=== PATIENT | male | born 1960 | race Caucasian/White ===

== ENCOUNTER 2023-12-27 14:33 | Outpatient (OUT) | payer BC, SELFPAY | END 2023-12-27 14:34 | disposition home or self-care (01) | LOC: PST 14:34 | PROVIDERS: Visit Provider Surgery | DX: Z01.818 Encounter for other preprocedural examination (principal); Z12.11 Encounter for screening for malignant neoplasm of colon ==

== ENCOUNTER 2024-01-03 06:43 | Day surgery (SDC) | payer BC, SELFPAY ==
--- OUTSIDE RECORDS SUMMARY | 2024-01-03 06:49 | XMS_ITS | CCD ---
Author Organization [facility] Care Team Providers Care Weatherization Specialist Name Role Phone Rine, Tressa L Primary Care Provider Rigoberto Patel MD Attending Unavailable Rine MISSION SUPPORT SPECIALIST, Tressa Hemalatha Primary Care Unavailable Rigoberto Patel MD Attending Unavailable Rine MISSION SUPPORT SPECIALIST, Tressa Hemalatha Primary Care Unavailable Rigoberto Patel MD Attending Unavailable Rine MISSION SUPPORT SPECIALIST, Tressa Hemalatha Consulting Unavailable Rine MISSION SUPPORT SPECIALIST, Tressa Hemalatha Primary Care Unavailable Rigoberto Patel MD Attending Unavailable Rine MISSION SUPPORT SPECIALIST, Tressa Hemalatha Primary Care Unavailable Rigoberto Patel MD Attending Unavailable Rine MISSION SUPPORT SPECIALIST, Tressa Hemalatha Primary Care Unavailable Rigoberto Patel MD Attending Unavailable Rine MISSION SUPPORT SPECIALIST, Tressa Hemalatha Primary Care Unavailable Evelio Monsivais DO Primary Care Provider [phone] [place] MARRIAGE AND FAMILY COUNSELOR, Tressa L Unavailable Evelio Monsivais DO Unavailable Rine EXPLOSION WELDER - MARRIAGE AND FAMILY COUNSELOR, Tressa L Primary Care Provider RINE, TRESSA L Referring Unavailable RINE, TRESSA L Primary Care Unavailable RINE, TRESSA L Primary Care Unavailable KEATON KRISHNAMURTHY Attending Unavailable RINE, TRESSA L Referring Unavailable RINE, TRESSA L Primary Care Unavailable RINE, TRESSA L Referring Unavailable RINE, TRESSA L Primary Care Unavailable RINE, TRESSA L Referring Unavailable RINE, TRESSA L Primary Care Unavailable RINE, TRESSA L Referring Unavailable RINE, TRESSA L Primary Care Unavailable RINE, TRESSA L Referring Unavailable RINE, TRESSA L Primary Care Unavailable RINE, TRESSA L Attending Unavailable RINE, TRESSA L Attending Unavailable ELI PERRIN Attending Unavailable Allergies Allergy Classification Reported Allergen(s) Allergy Type Date of Onset Reaction(s) Facility (1 source) No Known Medication Allergies; Translations: [No Known Medication Allergies] Propensity to adverse reactions to drug (disorder) [facility] Repository Medications Current Medications Medication Drug Class(es) Dates Sig (Normalized) Sig (Original) azithromycin 250 mg oral tablet (1 source) Macrolide Antimicrobial Start: 3 azithromycin (Zithromax) 250 MG tablet Indications: Bronchitis Take 2 tablets day one then 1 tablet daily 6 tablet 0 01/20/2023 Active cholecalciferol 0.025 mg oral tablet (1 source) Vitamin D Start: 3 take 1 tablet by mouth once daily cholecalciferol (Vitamin D3) 25 MCG (1000 UT) tablet Indications: Vitamin D deficiency Take 1 tablet (1,000 Units) by mouth 1 (one) time each day at the same time. 90 tablet 3 12/23/2022 Active chondroitin sulfates 1200 mg / glucosamine sulfate 1500 mg oral capsule (1 source) take 1 tablet by mouth in the morning Glucosamine-Chondr oitin 500-400 MG capsule Take 1 tablet by mouth in the morning. 0 Active chondroitin sulfates 200 mg / glucosamine sulfate 500 mg / methylsulfonylmethane 150 mg oral tablet (6 sources) take 1 tablet by mouth once daily Glucosamine-Chondr oitin-MSM 500-200-150 MG TABS Take 1 tablet by mouth daily. 0 Active Elastic Bandages & Supports (Abdominal Binder/Elastic Large) misc (1 source) Start: 3 Elastic Bandages & Supports (Abdominal Binder/Elastic Large) misc Indications: Diastasis recti 1 Units in the morning. Patient to be measured for sizing. 1 each 0 01/20/2023 Active levothyroxine sodium 0.088 mg oral tablet (8 sources) l-Thyroxine Start: 4 End: 4 take 1 tablet by mouth before mealtime levothyroxine (Synthroid) 88 MCG tablet Indications: Acquired hypothyroidism (CMS/HCC) Take 1 tablet (88 mcg) by mouth in the morning. Take before meals. 90 tablet 1 05/11/2023 11/07/2023 Active take 1 tablet by mouth once reyes y levothyroxine (SYNTHROID) 100 MCG tablet Take 100 mcg by mouth Daily. 0 Active methylPREDNISolone 4 mg oral tablet (1 source) Corticosteroid Start: 01-20-2023 methylPREDNISolone (Medrol) 4 MG tablet Indications: Bronchitis 1 MEDROL DOSE LANCE 1 tablet 0 01/20/2023 Active Multiple Vitamins-Minerals (MULTIVITAMIN ADULTS 50+ PO) (1 source) take 1 tablet by mouth in the morning Multiple Vitamins-Minerals (MULTIVITAMIN ADULTS 50+ PO) Take 1 tablet by mouth in the morning. 0 Active Multiple Vitamins-Minerals (THERAPEUTIC MULTIVITAMIN-MINERALS) tablet (6 sources) take 1 tablet by mouth once daily Multiple Vitamins-Minerals (THERAPEUTIC MULTIVITAMIN-MINERALS) tablet Take 1 tablet by mouth daily 0 Active take 1 tablet by mouth once reyes y Multiple Vitamins-Minerals (THERAPEUTIC MULTIVITAMIN-MINERALS) tablet Take 1 tablet by mouth daily. 0 Active Completed/Discontinued Medications Medication Drug Class(es) Dates Sig (Normalized) Sig (Original) 50 ml sodium chloride 9 mg/ml injection (1 source) Start: 08-29-2023 End: 08-29-2023 sodium chloride 0.9 % bolus 1,000 mL Problems Active Problems Problem Classification Problem Date Documented Da te Episodic/Chronic Disorders of lipid metabolism (1 source) Hypercholesterolemi a; Translations: [Pure hypercholesterolemi a, unspecified] Onset: 10-26-2022 10-26-2022 Chronic Fracture of lower limb (1 source) Closed fracture of calcaneus; Translations: [Unspecified fracture of left calcaneus, initial encounter for closed fracture] Episodic Nutritional deficiencies (1 source) Vitamin D deficiency; Translations: [Vitamin D deficiency, unspecified] Onset: 10-26-2022 10-26-2022 Chronic Other injuries and conditions due to external causes (1 source) Dislocation of joint; Translations: [Unspecified multiple injuries, initial encounter] Episodic Other lower respiratory disease (1 source) Other forms of dyspnea; Translations: [Other forms of dyspnea] Onset: 10-17-2023 Episodic Rheumatoid arthritis and related disease (1 source) Seronegative rheumatoid arthritis; Translations: [Rheumatoid arthritis without rheumatoid factor, unspecified site] Onset: 10-26-2022 10-26-2022 Chronic Syncope (3 sources) Syncope and collapse; Translations: [Syncope and collapse] Onset: 08-29-2023 08-29-2023 Episodic Thyroid disorders (2 sources) Acquired hypothyroidism; Translations: [Hypothyroidism, unspecified] Onset: 10-26-2022 05-11-2023 Chronic Past or Other Problems Problem Classification Problem Date Documented Da te Episodic/Chronic Immunizations and screening for infectious disease (1 source) Anti-nuclear factor positive; Translations: [Other specified abnormal immunological findings in serum] Onset: 10-26-2022 Resolved: 01-20-2023 01-20-2023 Episodic Other bone disease and musculoskeletal deformities (1 source) Osteopenia; Translations: [Other specified disorders of bone density and structure, unspecified site] Onset: 10-26-2022 10-26-2022 Episodic Other connective tissue disease (2 sources) Diastasis recti; Translations: [Separation of muscle (nontraumatic), other site] Onset: 05-25-2023 05-25-2023 Episodic Other screening for suspected conditions (not mental disorders or infectious disease) (6 sources) Patient encounter status; Translations: [Encounter for screening for malignant neoplasm of colon] Onset: 12-03-2013 Resolved: 01-23-2018 01-23-2018 Episodic Other upper respiratory disease (1 source) Allergic rhinitis due to pollen; Translations: [Allergic rhinitis due to pollen] Onset: 10-26-2022 Resolved: 01-20-2023 01-20-2023 Chronic Results Test Name Value Interpretation Reference Range Facility [facility] 08-29-2023 Anion gap [Moles/Vol] 11 mmol/L 9 - 17 mmol/L [facility] Calcium [Mass/Vol] 8.2 mg/dL Low 8.6 - 10. 4 mg/dL [facility] Chloride [Moles/Vol] 103 mmol/L 98 - 10 7 mmol/L [facility] CO2 [Moles/Vol] 22 mmol/L 20 - 31 mmol/L [facility] Creatinine [Mass/Vol] 0.9 mg/dL 0.7 - 1.2 mg/dL [facility] Est, Glom Filt Rate - PINF [facility] Comment on above: These results are not intended for use in patients <18 years of age. eGFR results are calculated without a race factor using the 2020 CKD-EPI equation. Careful clinical correlation is recommended, particularly when comparing to results calculated using previous equations. The CKD-EPI equation is less accurate in patients with extremes of muscle mass, extra-renal metabolism of creatine, excessive creatine ingestion, or following therapy that affects renal tubular secretion. Glucose [Mass/Vol] 91 mg/dL 70 - 99 mg/dL [facility] Interpretation and review of laboratory results Abnormal [facility] Potassium [Moles/Vol] 3.6 mmol/L Low 3.7 - 5.3 mmol/L [facility] Sodium [Moles/Vol] 136 mmol/L 135 - 144 mmol/L [facility] Urea nitrogen [Mass/Vol] 18 mg/dL 8 - 23 mg/dL [facility] Urea nitrogen/Creatinine [Mass ratio] 20 mg/mg 9 - [facility] Basic Metabolic Profon 08-28 Anion gap [Moles/Vol] 11 mmol/L Normal 9-[address] [facility] Comment on above: Performed By: #### T ROPI, MG, CDP, BMP #### [facility] [address] [place] [address] Replenishment Analyst: Omid Fischer MD BUN/CRE Ratio 20 Normal - [facility] Comment on above: Performed By: #### T ROPI, MG, CDP, BMP #### [facility] [address] [place] [address] Replenishment Analyst: Omid Fischer MD Calcium [Mass/Vol] 8.2 mg/dL Low 8.6-10.4 [facility] Comment on above: Performed By: #### T ROPI, MG, CDP, BMP #### [facility] [address] [place] [address] Replenishment Analyst: Omid Fischer MD Chloride [Moles/Vol] 103 mmol/L Normal 98-107 [facility] Comment on above: Performed By: #### T ROPI, MG, CDP, BMP #### [facility] [address] [place] [address] Replenishment Analyst: Omid Fischer MD CO2 [Moles/Vol] 22 mmol/L Normal 20-31 [facility] Comment on above: Performed By: #### T ROPI, MG, CDP, BMP #### [facility] [address] [place] [address] [place] [address] Replenishment Analyst: Omid Fischer MD Creatinine [Mass/Vol] 0.9 mg/dL Normal 0.7-1.[address] [facility] Comment on above: Performed By: #### T ROPI, MG, CDP, BMP #### [address] [place] [address] Replenishment Analyst: Omid Fischer MD GFR/1.73 sq M.predicted among non-blacks MDRD (S/P/Bld) [Vol rate/Area] mL/min/{1.73_m2} Normal >60 [facility] Comment on above: Result Comment: These results are not intended for use in patients <18 years of age. eGFR results are calculated without a race factor using the 2020 CKD-EPI equation. Careful clinical correlation is recommended, particularly when comparing to results calculated using previous equations. The CKD-EPI equation is less accurate in patients with extremes of muscle mass, extra-renal metabolism of creatine, excessive creatine ingestion, or following therapy that affects renal tubular secretion. Performed By: #### T ROPI, MG, CDP, BMP #### [address] [place] [address] Replenishment Analyst: Omid Fischer MD Glucose [Mass/Vol] 91 mg/dL Normal 70-99 [facility] Comment on above: Performed By: #### T ROPI, MG, CDP, BMP #### [address] [place] [address] Replenishment Analyst: Omid Fischer MD Potassium [Moles/Vol] 3.6 mmol/L Low 3.7-5.[address] [facility] Comment on above: Performed By: #### T ROPI, MG, CDP, BMP #### [address] [place] [address] Replenishment Analyst: Omid Fischer MD Sodium [Moles/Vol] 136 mmol/L Normal 135-144 [facility] Comment on above: Performed By: #### T MG MARTIN, CDP, BMP #### [facility] [address] [place] [address] Replenishment Analyst: Omid Fischer MD Urea nitrogen [Mass/Vol] 18 mg/dL Normal 8- [facility] Comment on above: Performed By: #### T MG MARTIN, CDP, BMP #### [facility] [address] [place] [address] Replenishment Analyst: Omid Fischer MD CBC with Auto Differentialon 08-29-2023 Basophils (Bld) [#/Vol] 0.03 10*3/uL [facility] Basophils/100 WBC (Bld) 1 % 0 - 2 % [facility] Eosinophils (Bld) [#/Vol] 0.13 10*3/uL [facility] Eosinophils/100 WBC (Bld) 2 % 1 - 4 % [facility] Erythrocyte distribution width (RBC) [Ratio] 13.2 % 11.8 - 14.4 % [facility] Hematocrit (Bld) [Volume fraction] 36.0 % Low 40.7 - 50.3 % [facility] Hemoglobin (Bld) [Mass/Vol] 12.2 g/dL Low 13.0 - 17.0 g/dL [facility] Immature granulocytes (Bld) [#/Vol] [facility] Immature granulocytes/100 WBC (Bld) 0 % 0 [facility] Interpretation and review of laboratory results Abnormal [facility] Lymphocytes/100 WBC (Bld) 38 % 24 - 43 % [facility] Lymphocytes/100 WBC (Bld) 2.33 % [facility] MCH (RBC) [Entitic mass] 31.3 pg 25.2 - 33.5 pg [facility] MCHC (RBC) [Mass/Vol] 33.9 g/dL 28.4 - 34.8 g/dL [facility] MCV (RBC) [Entitic vol] 92.3 fL 82.6 - 102.9 fL [facility] Monocytes/100 WBC (Bld) 11 % 3 - 12 % [facility] Monocytes/100 WBC (Bld) 0.66 % [facility] Neutrophils/100 WBC (Bld) 48 % 36 - 65 % [facility] Nucleated RBC/100 WBC (Bld) [Ratio] 0.0 % 0.0 per 100 WBC [facility] Platelet mean volume (Bld) [Entitic vol] 9.8 fL 8.1 - 13.5 fL [facility] Platelets (Bld) [#/Vol] 222 10*3/uL [facility] RBC (Bld) [#/Vol] 3.90 10*6/uL Low 4.21 - 5.7 7 m/uL [facility] Segmented neutrophils/100 WBC (Bld) 2.90 % [facility] WBC other (Bld) [#/Vol] 6.1 [facility] CBC with Diffon 08-29-2023 Abs. Basophil 0.03 k/uL Normal 0.00-0.20 [facility] Comment on above: Performed By: #### T ROPI, MG, CDP, BMP #### [facility] [address] [place] [address] [place] [address] Replenishment Analyst: Omid Fischer MD Abs.Imm.Granulocyte <0.03 Normal 0.00-0.30 [facility] Comment on above: Performed By: #### T ROPI, MG, CDP, BMP #### [address] [place] [id number] Replenishment Analyst: Omid Fischer MD Abs.Neutrophil (Seg) 2.90 k/uL Normal 1.50-8.10 [facility] Comment on above: Performed By: #### T ROPI, MG, CDP, BMP #### [address] [place] [address] Replenishment Analyst: Omid Fischer MD Basophils/100 WBC (Bld) 1 % Normal 0-2 [facility] Comment on above: Performed By: #### T ROPI, MG, CDP, BMP #### [address] [place], [place] [id number] Replenishment Analyst: Omid Fischer MD Eosinophils (Bld) [#/Vol] 0.13 10*3/uL Normal 0.00-0.44 [facility] Comment on above: Performed By: #### T ROPI, MG, CDP, BMP #### [address] [place] [id number] Replenishment Analyst: Omid Fischer MD Eosinophils/100 WBC (Bld) 2 % Normal 1-4 [facility] Comment on above: Performed By: #### T ROPI, MG, CDP, BMP #### [address] [place] [id number] Replenishment Analyst: Omid Fischer MD Erythrocyte distribution width (RBC) [Ratio] 13.2 % Normal 11.8-14.4 [facility] Comment on above: Performed By: #### T ROPI, MG, CDP, BMP #### [address] [place], [place] [id number] Replenishment Analyst: Omid Fischer MD Hematocrit (Bld) [Volume fraction] 36.0 % Low 40.7-50.3 [facility] Comment on above: Performed By: #### T ROPI, MG, CDP, BMP #### [address] [place] [id number] Replenishment Analyst: Omid Fischer MD Hemoglobin (Bld) [Mass/Vol] 12.2 g/dL Low 13.0-17.0 [facility] Comment on above: Performed By: #### T ROPI, MG, CDP, BMP #### [address] [place], [place] [id number] Replenishment Analyst: Omid Fischer MD Immature granulocytes/100 WBC (Bld) 0 % Normal 0 [facility] Comment on above: Performed By: #### T ROPI, MG, CDP, BMP #### [facility] [address] [place], [place] [id number] Replenishment Analyst: Omid Fischer MD Lymphocytes (Bld) [#/Vol] 2.33 10*3/uL Normal 1.10-3.70 [facility] Comment on above: Performed By: #### T ROPI, MG, CDP, BMP #### [facility] [address] [place] [id number] Replenishment Analyst: Omid Fischer MD Lymphocytes/100 WBC (Bld) 38 % Normal 24-43 [facility] Comment on above: Performed By: #### T ROPI, MG, CDP, BMP #### [address] [place] [id number] Replenishment Analyst: Omid Fischer MD MCH (RBC) [Entitic mass] 31.3 pg Normal 25.2-33.5 [facility] Comment on above: Performed By: #### T ROPI, MG, CDP, BMP #### [address] [place], [place] [phone] Replenishment Analyst: Omid Fischer MD MCHC (RBC) [Mass/Vol] 33.9 g/dL Normal 28.4-34.[address] [facility] Comment on above: Performed By: #### T ROPI, MG, CDP, BMP #### [address] [place], [facility]83 Replenishment Analyst: Omid Fischer MD MCV (RBC) [Entitic vol] 92.3 fL Normal 82.6-102.9 [facility] Comment on above: Performed By: #### T ROPI, MG, CDP, BMP #### [address] [place], [place] [phone] Replenishment Analyst: Omid Fischer MD Monocytes (Bld) [#/Vol] 0.66 10*3/uL Normal 0.10-1.20 [facility] Comment on above: Performed By: #### T ROPI, MG, CDP, BMP #### [facility] [address] [place], [facility]83 Replenishment Analyst: Omid Fischer MD Monocytes/100 WBC (Bld) 11 % Normal 3-12 [facility] Comment on above: Performed By: #### T ROPI, MG, CDP, BMP #### [facility] [address] [place], [facility]83 Replenishment Analyst: Omid Fischer MD Neutrophil (Seg) 48 % Normal 36-65 [facility] Comment on above: Performed By: #### T ROPI, MG, CDP, BMP #### [address] [place], [facility]83 Replenishment Analyst: Omid Fischer MD NRBC Automated 0.0 per 100 WBC Normal 0.0 [facility] Comment on above: Performed By: #### T ROPI, MG, CDP, BMP #### [address] [place], [facility]83 Replenishment Analyst: Omid Fischer MD Platelet mean volume (Bld) [Entitic vol] 9.8 fL Normal 8.1-13.5 [facility] Comment on above: Performed By: #### T ROPI, MG, CDP, BMP #### [address] [place], [place] [address] Replenishment Analyst: Omid Fischer MD Platelets (Bld) [#/Vol] 222 10*3/uL Normal 138-453 [facility] Comment on above: Performed By: #### T ROPI, MG, CDP, BMP #### [address] [place], [place] [phone] Replenishment Analyst: Omid Fischer MD RBC (Bld) [#/Vol] 3.90 10*6/uL Low 4.21-5.77 [facility] Comment on above: Performed By: #### T ROPI, MG, CDP, BMP #### [facility] [address] [place] [address] Replenishment Analyst: Omid Fischer MD WBC (Bld) [#/Vol] 6.1 10*3/uL Normal 3.5-11.3 [facility] Comment on above: Performed By: #### T ROPI, MG, CDP, BMP #### [facility] [address] [place], [place] [phone] Replenishment Analyst: Omid Fischer MD Magnesiumon 08-29-2023 Magnesium [Mass/Vol] 1.9 mg/dL 1.6 - 2 .6 mg/dL [facility] Magnesium [Mass/Vol] 1.9 mg/dL Normal 1.6-2.6 [facility] Comment on above: Performed By: #### T ROPI, MG, CDP, BMP #### [facility] [address] [place], [place] [phone] Replenishment Analyst: Omid Fischer MD No Panel Informationon 08-28 [facility] Portable XR Chest AP single viewon 08-29-2023 No radiographic evidence of acute pulmonary disease. [facility] RIS CONSOLIDATED EXAMINATION: ONE XRAY VIEW OF THE CHEST 08/29/2023 8:05 pm COMPARISON: None. HISTORY: ORDERING SYSTEM PROVIDED HISTORY: syncope TECHNOLOGIST PROVIDED HISTORY: syncope FINDINGS: HEART/MEDIASTINUM: The cardiomediastinal silhouette is within normal limits. PLEURA/LUNGS: There are no focal consolidations or pleural effusions. There is no appreciable pneumothorax. BONES/SOFT TISSUE: No acute abnormality. [facility] RIS CONSOLIDATED Pete Rios MD - 08/29/2023 EXAMINATION: ONE XRAY VIEW OF THE CHEST 08/29/2023 8:05 pm COMPARISON: None. HISTORY: ORDERING SYSTEM PROVIDED HISTORY: syncope TECHNOLOGIST PROVIDED HISTORY: syncope FINDINGS: HEART/MEDIASTINUM: The cardiomediastinal silhouette is within normal limits. PLEURA/LUNGS: There are no focal consolidations or pleural effusions. There is no appreciable pneumothorax. BONES/SOFT TISSUE: No acute abnormality. IMPRESSION: No radiographic evidence of acute pulmonary disease. [facility] Radiology Study observation (narrative) [facility] Portable XR Chest AP single viewOrdered By: Pete Rios on 08-29-2023 [facility] Work Phone: Troponinon 08-29-2023 Troponin I.cardiac High sensitivity method [Mass/Vol] 10 ng/L 0 - 22 ng/L [facility] Comment on above: High Sensitivity Tro ponin values cannot be compared with other Troponin methodologies. [facility] Troponin, High Sens 10 ng/L Normal 0-22 [facility] Comment on above: Result Comment: High Sensitivity Troponin values cannot be compared with other Troponin methodologies. Performed By: #### T MARTIN, MG, CDP, BMP #### [facility] [address] [place] [address] Replenishment Analyst: Omid Fischer MD XR CHEST PORTABLEon 08-29-19 XR CHEST PORTABLE EXAMINATION: ONE XRAY VIEW OF THE CHEST 08/29/2023 8:05 pm COMPARISON: None. HISTORY: ORDERING SYSTEM PROVIDED HISTORY: syncope TECHNOLOGIST PROVIDED HISTORY: syncope FINDINGS: HEART/MEDIASTINUM: The cardiomediastinal silhouette is within normal limits. PLEURA/LUNGS: There are no focal consolidations or pleural effusions. There is no appreciable pneumothorax. BONES/SOFT TISSUE: No acute abnormality. IMPRESSION: No radiographic evidence of acute pulmonary disease. Interpreted by: Pete Rios MD Signed by: Pete Rios MD 08/29/23 Final result Normal [facility] Rheumatology Office/Clinic N oteon 02-24-2022 Rheumatology Office/Clinic Note Chief Complaint Follow Up - +DESTINEY History of Present Illness Patient is here for follow-up today. He reports that he is doing well overall, does not have any significant joint pain. Tolerating methotrexate well without side effects. Physical Exam Vitals & Measurements T: 36.6 ?C (Temporal Artery) HR: 61 (Peripheral) BP: 115/76 SpO2: 99 HT: 168 cm WT: 75.2 kg WT: 75.2 kg (Dosing) BMI: 26.64 Additional Vitals BP Position/Location: Sitting, Left arm Physical exam General: Alert and oriented, well nourished, no acute distress. Eye: PERRL, EOMI, normal conjunctiva. HENT: Normocephalic, atraumatic, no conjunctival injection Lungs: Normal respiratory rate, no use of accessory muscles, no wheezing, rhonchi, rales Heart: Normal rate, regular rhythm, no murmur, gallop or edema. Musculoskeletal: No swelling or tenderness of MCPs, PIPs, DIPs. No swelling or tenderness of wrists bilaterally, there is normal ROM. No swelling of elbows, normal ROM bilaterally. Normal range of motion of bilateral shoulders. No effusions of bilateral knees, normal ROM. No effusions of ankles bilaterally, normal ROM. No swelling or tenderness of MTPs bilaterally. Skin: Skin is warm, dry and pink, no rashes or lesions. Neurologic: Awake, alert, and oriented X3, CN II-XII intact. Psychiatric: Cooperative, appropriate mood and affect. Assessment/Plan 1. Seronegative rheumatoid arthritis Patient with seronegative RA, diagnosis made based on inflammatory arthritis with previous synovitis of bilateral MCPs, x-rays of hands showing periarticular osteopenia, elevated ESR of 69, C-reactive protein 1.15. He has had significant clinical improvement on methotrexate, reports minimal joint pain. On exam, he does not have any active synovitis, joint fusion. I suspect he has low disease activity with methotrexate monotherapy Recommend continue methotrexate 5 tabs weekly We discussed risks and benefits of methotrexate, which include, but are not limited to elevated risk of infections, cytopenias and blood count abnormalities, hepatotoxicity, pulmonary toxicity, risk of malignancy, nausea, vomiting, hair loss, oral ulcers. Patient was educated to take daily folic acid supplementation. We discussed that patient should refrain from alcohol use while taking methotrexate due to concern for chronic liver damage. We discussed that patient needs regular monitoring lab work while taking methotrexate. Recommend minimize use of alcohol Repeat labs today Follow-up in 3 months As you know, patients with autoimmune diseases are at higher risk for cardiovascular disease. Please address modifiable cardiac risk factors with this patient. Also, they should remain up to date on their preventative health maintenance and age appropriate cancer screenings as you deem fit. No live vaccines are to be administered while patient is on immunosuppressive medications. We recommend COVID-19 vaccines as approved by the FDA. We also recommend annual flu vaccine, as well as pneumococccal vaccination per USPSTF guideline. We also recommend year round SPF 30 or higher and UV avoidance when possible. Ordered: BUN Complete Blood Count w/ Differential Creatinine Hepatic Function Panel 2. High risk medication use methotrexate: Q3 month labs to monitor for cytopenias, hepatotoxicity, renal impairment. Ordered: BUN Complete Blood Count w/ Differential Creatinine Hepatic Function Panel 3. Osteoarthritis of multiple joints stable, ok to take OTC analgesics such as Tylenol PRN Orders: methotrexate, 5 tabs, Oral, Weekly, # 20 tabs, 2 Refill(s), Pharmacy: [facility] [id number] Medical Decision Making chronic problems, stable ( RA, OA, high risk med use) prescription drug management Chronic conditions NOT treated during this visit that affected my overall medical decision making: [] Treatment plans discussed but not opted for at this time: [] Prescribed medication that requires intensive monitoring for toxicity: [] I have reviewed the patient?s medication list for medication interactions/contraind ications and/or for upcoming procedures: [yes or no] Time Spent with the Patient I have personally spent [] minutes on this date, directly related to today's patient visit, including pre and post visit work, for this date of service. Time listed does not include time spent on separately billable services. Provider Comments Continue methotrexate 5 tabs weekly Folic acid daily Labs today Follow-up in 3 months Problem List/Past Medical History Ongoing High risk medication use Seronegative rheumatoid arthritis Historical DESTINEY positive Arthritis Hypothyroidism Procedure/Surgical History Carpal Tunnel Release Bilateral Left knee x3-Arthritis Clean Out Left Shoulder Left Wrist Lumbar Disc Rupture Right Shoulder x2 Medications CeleBREX 100 mg oral capsule, 100 mg= 1 caps, Oral, BID folic acid 1 mg oral tablet, 1 mg= 1 tabs, Oral, Daily, 1 ref (more content not included)... Normal [facility] Rheumatology Office/Clinic N oteon 12-17-2021 Rheumatology Office/Clinic Note Chief Complaint Follow Up +DESTINEY History of Present Illness Patient is here for follow-up today. Previous x-ray of the hand showed periarticular osteopenia, no obvious erosions. He has significant clinical benefit with prednisone, currently down to 10 mg daily. He does not have any significant pain or swelling. Physical Exam Vitals & Measurements T: 36.8 ?C (Temporal Artery) HR: 57 (Peripheral) BP: 122/79 SpO2: 99 HT: 168 cm WT: 74.9 kg WT: 74.9 kg (Dosing) BMI: 26.54 Additional Vitals BP Position/Location: Sitting, Right arm Physical exam General: Alert and oriented, well nourished, no acute distress. Eye: PERRL, EOMI, normal conjunctiva. HENT: Normocephalic, atraumatic, no conjunctival injection Lungs: Normal respiratory rate, no use of accessory muscles, no wheezing, rhonchi, rales Heart: Normal rate, regular rhythm, no murmur, gallop or edema. Musculoskeletal: trace swelling of bilateral 2-5th MCPs No swelling or tenderness of bilateral PIPs and DIPs No swelling or tenderness of wrist bilaterally Skin: Skin is warm, dry and pink, no rashes or lesions. Neurologic: Awake, alert, and oriented X3, CN II-XII intact. Psychiatric: Cooperative, appropriate mood and affect. Assessment/Plan 1. Seronegative rheumatoid arthritis Patient with newly diagnosed RA, diagnosis made based on inflammatory arthritis with previous synovitis of bilateral MCPs, x-rays of hands showing periarticular osteopenia, elevated ESR of 69, C-reactive protein 1.15. He feels significant improvement with prednisone, currently down to 10 mg daily He does not have any overt synovitis of bilateral MCPs, PIPs, DIPs Given the radiographic changes, I do recommend aggressive treatment in order to improve symptoms, prevent joint damage which is reversible, improve cardiovascular outcomes Recommend initiation of methotrexate 5 tabs weekly We discussed risks and benefits of methotrexate, which include, but are not limited to elevated risk of infections, cytopenias and blood count abnormalities, hepatotoxicity, pulmonary toxicity, risk of malignancy, nausea, vomiting, hair loss, oral ulcers. Patient was educated to take daily folic acid supplementation. We discussed that patient should refrain from alcohol use while taking methotrexate due to concern for chronic liver damage. We discussed that patient needs regular monitoring lab work while taking methotrexate. Recommend minimize use of alcohol Repeat labs in 3 weeks Continue prednisone taper, extend out 10 mg for 2 weeks, then 5 mg for 2 weeks Follow-up in 2 months As you know, patients with autoimmune diseases are at higher risk for cardiovascular disease. Please address modifiable cardiac risk factors with this patient. Also, they should remain up to date on their preventative health maintenance and age appropriate cancer screenings as you deem fit. No live vaccines are to be administered while patient is on immunosuppressive medications. We recommend COVID-19 vaccines as approved by the FDA. We also recommend annual flu vaccine, as well as pneumococccal vaccination per USPSTF guideline. We also recommend year round SPF 30 or higher and UV avoidance when possible. Ordered: BUN Complete Blood Count w/ Differential Creatinine Hepatic Function Panel 2. High risk medication use Methotrexate: Q3 month labs to monitor for cytopenias, hepatotoxicity, renal impairment. Orders: folic acid, 1 tabs, Oral, Daily, # 90 tabs, 1 Refill(s), Pharmacy: [facility] [id number] methotrexate, 5 tabs, Oral, Weekly, # 20 tabs, 2 Refill(s), Pharmacy: [facility] [id number] predniSONE, See Instructions, 2 tabs daily for 14 days, 1 tab daily for 14 days, # 42 tabs, 0 Refill(s), Pharmacy: [facility] [id number] Medical Decision Making new diagnosis, threat to bodily function, progressive (RA) Prescription of high risk medication requiring intensive monitoring (methotrexate) Chronic conditions NOT treated during this visit that affected my overall medical decision making: [] Treatment plans discussed but not opted for at this time: [] Prescribed medication that requires intensive monitoring for toxicity: [] methotrexate I have reviewed the patient?s medication list for medication interactions/contraind ications and/or for upcoming procedures: [yes or no] Time Spent with the Patient I have personally spent [] minutes on this date, directly related to today's patient visit, including pre and post visit work, for this date of service. Time listed does not include time spent on separately billable services. Physician Comments Start methotrexate 5 tabs weekly Folic acid daily Repeat labs in 3 weeks Follow-up in 2 months Continue prednisone taper Problem List/Past Medical History Ongoing High risk medication use Seronegative rheumatoid arthritis Historical DESTINEY positive Arthritis Hypothyroidism Procedure/Surgical History Carpal Tunnel Release Bilateral Left knee x3-Arthritis (more content not included)... Normal [facility] CCP Ab-[facility] 12-05-2021 CCP Ab-[place] <15.6 Normal <20.0 (Negative) [facility] Comment on above: Result Comment: Test Performed by: [facility] - [address] [address] Replenishment Analyst: Chadwick Silva M.D. Ph.D.; CLIA# [id number] Performed By: #### C ERIKA #### [facility] [address] [place] [address] XR Hand 3 Views Bilateralon 12-04-2021 XR Hand 3 Views Bilateral BILATERAL HAND RADIOGRAPHS CLINICAL HISTORY: Pain and swelling bilateral hands. COMPARISON: None. TECHNIQUE: Frontal, oblique and lateral radiographs of the bilateral hands was obtained. FINDINGS: LEFT HAND: There is periarticular osseous demineralization. There is no acute fracture, dislocation or periosteal reaction. There is diffuse proximal and distal interphalangeal joint space narrowing. The metacarpophalangeal joint spaces are maintained. There is mild joint space narrowing with subchondral sclerosis and spurring about the carpometacarpal joint of the thumb. The remaining carpus is unremarkable. There appears to be mild to moderate diffuse soft tissue swelling of the hand, most pronounced involving the second and third digits. RIGHT HAND: There is periarticular osseous demineralization. There is no acute fracture, dislocation or periosteal reaction. There is diffuse proximal and distal interphalangeal joint space narrowing, most pronounced involving the distal interphalangeal joint of the second digit. There is spurring about the DIP joint of the second digit. The metacarpophalangeal joint spaces are maintained. There is moderate joint space loss, subchondral sclerosis and spurring about the carpometacarpal joint of the thumb. The remaining carpus is unremarkable. There is mild diffuse soft tissue swelling about the right hand, most pronounced involving the second and third digits. IMPRESSION: Periarticular osseous demineralization of the bilateral hands. Diffuse joint space narrowing about the proximal and distal interphalangeal joints of the bilateral hands. Spurring about the distal interphalangeal joint right second digit. Moderate right and mild left osteoarthrosis of the carpometacarpal joints of the thumbs. Bilateral hand swelling, most pronounced involving the second and third digits bilaterally. Final Dictated by: Phuong Benitez DO Dictated DT/TM: 12/04/2021 10:23 am Signed by: Phuong Benitez DO Signed (Electronic Signature): 12/04/2021 10:30 am (If Report Is Signed, Electronically Signed in Other Vendor System) Normal [facility] .eGFRon 09-08-2022 GFR/1.73 sq M.predicted MDRD (S/P/Bld) [Vol rate/Area] mL/min/{1.73_m2} Normal >=60 [facility] Comment on above: Result Comment: [facility] have implemented the eGFR calculation approach that does not have a coefficient for race and that conforms to the NKF-ASN Task Force Recommendations. Stages of Chronic Kidney Disease GFR Stage 3a Mild to moderate loss of kidney function 59 to 45 Stage 3b Moderate to severe loss of kidney function 44 to 33 Stage 4 Severe loss of kidney function 29 to 15 Stage 5 Kidney failure Less than 15 GFR calculated using the CKD-Epi Creatinine Equation (2020): eGFR = 142 X min(SCr/?, 1)? X max(SCr /?, 1)-1.200 X 0.9938Age X 1.012 [if female] Abbreviations/Units: eGFR (estimated glomerular filtration rate) = mL/min/1.73 m2 SCr (standardized serum creatinine) = mg/dL ? = 0.7 (females) or 0.9 (males) ? = -0.241 (females) or -0.302 (males) min = indicates the minimum of SCr/? or 1 max = indicates the maximum of SCr/? or 1 Age = years Performed By: #### C ERIKA #### [address] [address] BUNon 12-03-2021 Urea nitrogen [Mass/Vol] 25 mg/dL Normal 8-26 [facility] Comment on above: Performed By: #### P THI #### [address] [address] CBC w/ Diffon 12-03-2021 Erythrocyte distribution width (RBC) [Ratio] 13.3 % Normal 11.6-14.8 [facility] Comment on above: Performed By: #### C BC #### [address] [address] Hematocrit (Bld) [Volume fraction] 38.8 % Low 41.0-53.0 [facility] Comment on above: Performed By: #### C BC #### [address] [address] Hemoglobin (Bld) [Mass/Vol] 13.2 g/dL Low 13.5-17.5 [facility] Comment on above: Performed By: #### C BC #### [place] [id number] MCH (RBC) [Entitic mass] 30.7 pg Normal 27.0-35.0 [facility] Comment on above: Performed By: #### C BC #### [place] [id number] MCHC 34.2 % Normal 31.0-37.0 [facility] Comment on above: Performed By: #### C BC #### [place] [id number] MCV (RBC) [Entitic vol] 90.0 fL Normal 80.0-100.0 [facility] Comment on above: Performed By: #### C BC #### [place] [id number] Platelet 311 x10*3/mcL Normal 150-350 [facility] Comment on above: Performed By: #### C BC #### [place] [id number] Platelet mean volume (Bld) [Entitic vol] 8.3 fL Normal 6.7-10.6 [facility] Comment on above: Performed By: #### C BC #### [place] [id number] RBC 4.31 x10*6/mcL Normal 4.30-5.80 [facility] Comment on above: Performed By: #### C BC #### [address] [address] WBC 7.6 x10*3/mcL Normal 4.5-11.0 [facility] Comment on above: Performed By: #### C BC #### [address] [address] CRPon 12-03-2021 CRP 1.15 mg/dL High 0.00-0.75 [facility] Comment on above: Result Comment: CRP measurement is useful for assessment of non-specific INFLAMMATORY RESPONSE to infection or injury AND is a sensitive MARKER of ACUTE INFLAMMATION including CARDIAC RISK ASSESSMENT. CARDIAC patients with elevated CRP are POTENTIALLY at a HIGHER RISK OF FUTURE CARDIAC EVENTS. Performed By: #### C RP #### [address] [address] Calciumon 12-03-2021 Calcium [Mass/Vol] 9.8 mg/dL Normal 8.5-10.3 [facility] Comment on above: Performed By: #### C A #### [address] [address] Creatinineon 12-03-2021 Creatinine [Mass/Vol] 0.93 mg/dL Normal 0.61-1.24 [facility] Comment on above: Performed By: #### C ERIKA #### [address] [address] Diff Autoon 12-03-2021 Baso Absolute 0.1 x10*3/mcL Normal 0.0-0.2 [facility] Comment on above: Performed By: #### . Automated Diff #### [address] [address] Basophils/100 WBC (Bld) 0.9 % Normal 0.0-1.2 [facility] Comment on above: Performed By: #### . Automated Diff #### [address] [address] Eos Absolute 0.1 x10*3/mcL Normal 0.0-0.4 [facility] Comment on above: Performed By: #### . Automated Diff #### [address] [address] Eosinophils/100 WBC (Bld) 1.7 % Normal 0.0-6.1 [facility] Comment on above: Performed By: #### . Automated Diff #### [address] [address] Lymph Absolute 1.9 x10*3/mcL Normal 1.0-4.[address] [facility] Comment on above: Performed By: #### . Automated Diff #### [address] [address] Lymphocytes/100 WBC (Bld) 25.0 % Low 27.2-40.8 [facility] Comment on above: Performed By: #### . Automated Diff #### [address] [address] Emery Absolute 0.8 x10*3/mcL Normal 0.3-1.1 [facility] Comment on above: Performed By: #### . Automated Diff #### [address] [address] Monocytes/100 WBC (Bld) 10.5 % Normal 4.7-13.9 [facility] Comment on above: Performed By: #### . Automated Diff #### [address] [address] Neutro Absolute 4.7 x10*3/mcL Normal 1.8-7.7 [facility] Comment on above: Performed By: #### . Automated Diff #### [address] [address] Neutro Auto 61.9 % Normal 47.2-70.8 [facility] Comment on above: Performed By: #### . Automated Diff #### [address] [address] ESRon 12-03-2021 Sed Rate 69 mm/hr High 0-23 [facility] Comment on above: Performed By: #### C ERIKA #### [address] [address] Ferritinon 12-03-2021 Ferritin Lvl 134.0 ng/mL Normal 23.9-336.2 [facility] Comment on above: Performed By: #### C ERIKA #### [address] [address] Hep Func Panelon 12-03-2021 Albumin [Mass/Vol] 3.9 g/dL Normal 3.2-4.9 [facility] Comment on above: Performed By: #### L IVER #### [address] [place] [address] Alk Phos 73 IU/L Normal 32-91 [facility] Comment on above: Performed By: #### L IVER #### [address] [place] [address] ALT [Catalytic activity/Vol] 13 U/L Low 17-63 [facility] Comment on above: Performed By: #### L IVER #### [address] [address] AST [Catalytic activity/Vol] 30 U/L Normal 15-41 [facility] Comment on above: Performed By: #### L IVER #### [address] [address] Bili Direct <0.1 Normal 0.1-0.5 [facility] Comment on above: Performed By: #### L IVER #### [address] [place] [address] Bili Indirect >0.5 Normal 0.0-1.0 [facility] Comment on above: Performed By: #### L IVER #### [address] [place] [address] Bili Total 0.6 mg/dL Normal 0.3-1.2 [facility] Comment on above: Performed By: #### L IVER #### [address] [address] Protein [Mass/Vol] 8.3 g/dL High 6.5-8.1 [facility] Comment on above: Performed By: #### L IVER #### [address] [address] HepChronic Profon 12-03-2021 Hep B Core Total Ab 3.39 Normal [facility] Comment on above: Performed By: #### C ERIKA #### [address] [address] Hep B Core Total Ab Interp Negative Normal Negative [facility] Comment on above: Result Comment: A ne gative test result does not exclude the possibility of exposure to hepatitis B virus. Levels of anti-HBc may be undetectable both in early infection and late after infection. Results obtained with the VITROS Anti-HBc test may not be used interchangeably with values obtained with different manufacturers? test methods. The magnitude of a VITROS Anti-HBc test result cannot be correlated to an endpoint titer. Performed By: #### C ERIKA #### [place] [id number] Hep B Surface Antibody Interp Positive Normal [facility] Comment on above: Result Comment: Lexy ent is considered to be immune to infection with HBV. Performed By: #### C ERIKA #### [address] [address] Hep Bs Ab 14.0 mIU/mL Normal [facility] Comment on above: Performed By: #### C ERIKA #### [address] [address] Hep Bs Ag Interp Negative Normal Negative [facility] Comment on above: Performed By: #### C ERIKA #### [address] [address] Hep C IgG Interp Negative Normal Negative [facility] Comment on above: Performed By: #### C ERIKA #### [address] [address] PTH-INTon 12-03-2021 PTH Intact 34 pg/mL Normal 12- [facility] Comment on above: Performed By: #### P THI #### [address] [address] Rheumatology Office/Clinic N oteon 12-03-2021 Rheumatology Office/Clinic Note Chief Complaint Consult for Positive DESTINEY History of Present Illness Patient is here for evaluation of positive DESTINEY, inflammatory arthritis. he states that he began to have worsening joint pain, swelling several months ago, as well as involvement of his shoulders bilaterally. He reports multiple hours of morning stiffness, and there would be some improvement with activity. He reports that the pain is severe, but has been improving recently with use of Celebrex. He does not have any cutaneous manifestations, he was found to have negative HLA-B27. His rheumatoid factor was negative. He was found initially to have negative DSETINEY in March 2021, but subsequent repeat in September showed positive DESTINEY screen. He denies any skin rash. He was found to have significantly elevated ESR CRP recently at 77 and 1.6 respectively. He does recall that he sustained an injury involving his left thumb base where he broke a bone, and had rupture of the tendon. He underwent a surgical repair by [facility] around April 2021. He denies any other joints being involved besides his hands and shoulders. He does not have history of nephrolithiasis. He also has a history of Avelino thyroiditis. he does recall having seen Dr. Bah in the past, many decades ago. He recalls not being put on any pharmacotherapy, but he did undergo injections. Labs April 13, 2021 WBC 7.1 Hemoglobin 13.2 Platelets 356 ESR 56 Uric acid 6.4 HLA-B27 negative Lyme antibody negative Vitamin D29.8 C-reactive protein 0.4 Rheumatoid factor less than 10 DESTINEY negative October 13 2021 WBC 7.0 Hemoglobin 12.9 Platelet 269 Calcium 9.1 BUN 17 Creatinine 0.85 November 18, 2021 C-reactive protein 1.6 (0.0?0.744) WBC 8.0 Hemoglobin 13.9 Platelet count 297 ESR 77 (0?20) 11/20/2021 DESTINEY screen positive Review of Systems Patient reports joint pain, stiffness, all other systems are negative. Physical Exam Vitals & Measurements T: 36.9 ?C (Temporal Artery) HR: 66 (Peripheral) BP: 121/79 SpO2: 99 HT: 168 cm WT: 75.9 kg WT: 75.9 kg (Dosing) BMI: 26.89 Additional Vitals BP Position/Location: Sitting, Right arm Physical exam General: Alert and oriented, well nourished, no acute distress. Eye: PERRL, EOMI, normal conjunctiva. HENT: Normocephalic, atraumatic, no conjunctival injection Lungs: Normal respiratory rate, no use of accessory muscles, no wheezing, rhonchi, rales Heart: Normal rate, regular rhythm, no murmur, gallop or edema. Musculoskeletal: mild swelling of bilateral 2-5th MCPs no obvious swelling or tenderness of PIPs and DIPs fullness of bilateral wrists knees without effusions ankles without effusions +empty can test bilateral shoulders, pain on internal rotation , normal ROM of shoulders Skin: Skin is warm, dry and pink, no rashes or lesions. Neurologic: Awake, alert, and oriented X3, CN II-XII intact. Psychiatric: Cooperative, appropriate mood and affect. Assessment/Plan 1. Inflammatory arthritis Patient with complex case of elevated ESR, C-reactive protein, pain and swelling involving bilateral shoulders and hands. On exam, he has mild swelling of bilateral second through fifth MCPs, and [id number] ultrasound demonstrated synovial thickening with a small effusion of the MCPs best seen on the volar aspect. Bilateral shoulders with normal range of motion, however, profoundly positive empty can test and pain on internal rotation. PMR would be of consideration, however, involvement of the hands would be atypical. Rheumatoid factor was negative, but I do recommend addition of CCP antibody. Crystal arthropathy such as CPPD arthropathy would have to be considered as well, however, the significantly elevated inflammatory markers would be rather atypical. I do recommend further work-up for metabolic causes of CPPD. He has had some clinical improvement with Celebrex, and I recommend addition of prednisone given that he still has residual inflammatory findings on exam Obtain x-rays of hands bilaterally, need to evaluate for underlying peritracheal osteopenia or erosive changes I do not recommend addition of immunosuppressive therapies at this time, I will see him back in 1 to 2 weeks Prednisone taper: 15 mg daily for 10 days, 10 mg daily for 10 days, 5 mg daily for 10 days Ordered: BUN C-Reactive Protein Calcium Level Total Complete Blood Count w/ Differential Creatinine Cyclic Citrullinated Peptide Antibody-[place] Erythrocyte Sedimentation Rate Ferritin Hepatic Function Panel Hepatitis Profile, Chronic Parathyroid Hormone Intact US Upper Extr. Non-Vasc. Limited Left US Upper Extr. Non-Vasc. Limited Right Vitamin D 25-Hydroxy Total XR Hand 3 Views Bilateral 2. DESTINEY positive Patient with positive DESTINEY screen. Previous DESTINEY in Mar 2021 was negative. He does not exhibit any obvious clinical or physical examination features to suggest underlying systemic lupus erythematosus or other systemic (more content not included)... Normal [facility] US Upper Extr. Non-Vasc. Levar Cobb 12-03-2021 US Upper Extr. Non-Vasc. Limited Left Study: Left wrist Ultrasound Indication: Wrist pain, evaluate inflammatory arthritis Findings: Sonographic examination of the left wrist was performed in real time using a 15-5 MHz linear array transducer. Longitudinal and transverse scans were obtained from the dorsal aspect. Radiocarpal joint was identified, and there is no evidence of synovial hypertrophy. No joint effusion was visualized. Doppler signal was not present to suggest hypervascularity. Extensor tendons were intact and no gross abnormalities or tenosynovitis was present. Median nerve was identified on palmar aspect, cross-sectional area measures 0.06 cm? Impression: No obvious synovitis of the left wrist, no evidence of median nerve enlargement. Study: Left second MCP Ultrasound Indication: Hand pain, evaluate inflammatory arthritis Findings: Sonographic examination of the left second MCP was performed in real time using a 15-5 MHz linear array transducer. Longitudinal and transverse scans were obtained from the palmar and dorsal aspect. MCP joint was identified, and there is evidence of mild synovial hypertrophy. Trace joint effusion was visualized. Doppler signal was not present to suggest hypervascularity. Extensor and flexor tendons were intact. Trace to mild tenosynovitis of flexor tendon was present. Impression: There is small effusion of the left second MCP with trace tenosynovitis of the flexor tendon. Rigoberto Patel MD Final Signed by: Rigoberto Patel MD Signed (Electronic Signature): 12/03/2021 5:40 pm Transcribed DT/TM: 12/03/2021 5:40 (If Report Is Signed, Electronically Signed in Other Vendor System) Normal [facility] US Upper Extr. Non-Vasc. Cristobal itterese Righton 12-03-2021 US Upper Extr. Non-Vasc. Limited Right Study: Right wrist Ultrasound Indication: Wrist pain, evaluate inflammatory arthritis Findings: Sonographic examination of the right wrist was performed in real time using a 15-5 MHz linear array transducer. Longitudinal and transverse scans were obtained from the dorsal aspect. Radiocarpal joint was identified, and there is no evidence of synovial hypertrophy. No joint effusion was visualized. Doppler signal was not present to suggest hypervascularity. Extensor tendons were intact and no gross abnormalities or tenosynovitis was present. Median nerve was identified on the palmar aspect, cross-sectional area measures 0.07 cm?. Impression: No obvious synovitis of the right wrist. No evidence of median nerve enlargement. Study: Right second MCP Ultrasound Indication: Hand pain, evaluate inflammatory arthritis Findings: Sonographic examination of the right second MCP was performed in real time using a 15-5 MHz linear array transducer. Longitudinal and transverse scans were obtained from the palmar and dorsal aspect. MCP joint was identified, and there is evidence of mild synovial hypertrophy. Trace joint effusion was visualized. Doppler signal was not present to suggest hypervascularity. Extensor and flexor tendons were intact. Tenosynovitis of flexor tendon was not present. Impression: Trace effusion and mild synovial hypertrophy of the right second MCP Rigoberto Patel MD Final Signed by: Rigoberto Patel MD Signed (Electronic Signature): 12/03/2021 5:37 pm Transcribed DT/TM: 12/03/2021 5:37 (If Report Is Signed, Electronically Signed in Other Vendor System) Normal [facility] Vitamin D 25-Hydroxy Totalon 12-03-2021 Vitamin D 25-Hydroxy Total 72 ng/mL Normal 30-100 [facility] Comment on above: Result Comment: Casie min D 25-Hydroxy Total Reference Range: Deficient: < 20 Insufficient: 20 to < 30 Sufficient: 30 - 100 Upper Safety Limit: > 100 Performed By: #### C [id number] #### [facility] [address] [place] [address] Provider Letteron 12-02-2021 Provider Letter [facility] [address] [place] [address] P: [phone] F: [phone] MD Tressa Ji [facility] [address] [place] [id number] Re: Manuel Cover1960 Date of Visit: 12/03/2021 Please send recent office notes that include medication, if any, and medical history for patient Thank you, Sofi Normal [facility] DEXA BONE DENSITY AXIAL SKEL ETONon 11-25-2021 Osteopenia by WHO criteria. RECOMMENDATIONS: 1. All patients should optimize their calcium and vitamin D intake. 2. Consider FDA-approved medical therapies in postmenopausal women and men aged 50 years and older, based on the following: - A hip or vertebral (clinical or morphometric) fracture - T-score less than or equal to -2.5 at the femoral neck or spine after appropriate evaluation to exclude secondary causes - Low bone density (T-score between -1.0 and -2.5 at the femoral neck or spine) and a 10-year probability of a hip fracture greater than or equal to 3% or a 10-year probability of a major osteoporosis-related fracture greater than or equal to 20% based on FRAX calculation. - Clinician judgment and/or patient preferences may indicate treatment for people with 10-year fracture probabilities above or below these levels - Further guidance on treatment can be found at the National Osteoporosis Foundation's website bonesource.org. 3. Patients with diagnosis of osteoporosis or at high risk for fracture should have regular bone mineral density tests. For patients eligible for Medicare, routine testing is allowed once every 2 years. The testing frequency can be increased to one year for patients who have rapidly progressing disease, those who are receiving or discontinuing medical therapy to restore bone mass or have additional risk factors. Template code: [id number] [facility] EXAMINATION: BONE DENSITOMETRY 11/25/2021 5:39 am TECHNIQUE: A bone density dual x-ray absorptiometry (DXA) scan was performed of the lumbar spine and left hip on a [employer] system. COMPARISON: None. HISTORY: ORDERING SYSTEM PROVIDED HISTORY: Closed dislocation, multiple and ill-defined sites Gender: M Age: 61 y/o FINDINGS: LUMBAR SPINE: L1-L4 BMD: 1.308 g/cm2 T-score: 0.7 Z-score: 1.2 LEFT TOTAL HIP: BMD: 1.003 g/cm2 T-score: -0.7 Z-score: -0.1 LEFT FEMORAL NECK: BMD: 0.889 g/cm2 T-score: -1.4 Z-score: -0.3 FRAX: 10-year fracture risk is performed using the [employer] FRAX calculator based on patient-reported risk factors. Major osteoporotic fracture: 6.0% Hip fracture: 0.7% Other situations known to alter the reliability of the FRAX score should be considered when making treatment decisions, including chronic glucocorticoid use and past treatments. Further guidance on treatment can be found at the National Osteoporosis Foundation's website bonesource.org. [facility] Blake Calderon DO - 11/25/2021 EXAMINATION: BONE DENSITOMETRY 11/25/2021 5:39 am TECHNIQUE: A bone density dual x-ray absorptiometry (DXA) scan was performed of the lumbar spine and left hip on a [employer] system. COMPARISON: None. HISTORY: ORDERING SYSTEM PROVIDED HISTORY: Closed dislocation, multiple and ill-defined sites Gender: M Age: 61 y/o FINDINGS: LUMBAR SPINE: L1-L4 BMD: 1.308 g/cm2 T-score: 0.7 Z-score: 1.2 LEFT TOTAL HIP: BMD: 1.003 g/cm2 T-score: -0.7 Z-score: -0.1 LEFT FEMORAL NECK: BMD: 0.889 g/cm2 T-score: -1.4 Z-score: -0.3 FRAX: 10-year fracture risk is performed using the [employer] FRAX calculator based on patient-reported risk factors. Major osteoporotic fracture: 6.0% Hip fracture: 0.7% Other situations known to alter the reliability of the FRAX score should be considered when making treatment decisions, including chronic glucocorticoid use and past treatments. Further guidance on treatment can be found at the National Osteoporosis Foundation's website bonesource.org. IMPRESSION: Osteopenia by WHO criteria. RECOMMENDATIONS: 1. All patients should optimize their calcium and vitamin D intake. 2. Consider FDA-approved medical therapies in postmenopausal women and men aged 50 years and older, based on the following: - A hip or vertebral (clinical or morphometric) fracture - T-score less than or equal to -2.5 at the femoral neck or spine after appropriate evaluation to exclude secondary causes - Low bone density (T-score between -1.0 and -2.5 at the femoral neck or spine) and a 10-year probability of a hip fracture greater than or equal to 3% or a 10-year probability of a major osteoporosis-related fracture greater than or equal to 20% based on FRAX calculation. - Clinician judgment and/or patient preferences may indicate treatment for people with 10-year fracture probabilities above or below these levels - Further guidance on treatment can be found at the National Osteoporosis Foundation's website bonesource.org. 3. Patients with diagnosis of osteoporosis or at high risk for fracture should have regular bone mineral density tests. For patients eligible for Medicare, routine testing is allowed once every 2 years. The testing frequency can be increased to one year for patients who have rapidly progressing disease, those who are receiving or discontinuing medical therapy to restore bone mass or have additional risk factors. Template code: [id number] [employer] Work Phone: Radiology Study observation (narrative) [facility] [employer] Work Phone: DEXA BONE DENSITY AXIAL SKEL ETONOrdered By: Blake Calderon on 11-25-2021 [facility] [employer] Work Phone: Basic Metabolic Panelon 09-25 Anion gap [Moles/Vol] 8 mmol/L Low 9 - 17 mmol/L [facility] [employer] Calcium [Mass/Vol] 9.1 mg/dL 8.6 - 10. 4 mg/dL [facility] [employer] Chloride [Moles/Vol] 106 mmol/L 98 - 10 7 mmol/L [facility] [employer] CO2 [Moles/Vol] 27 mmol/L 20 - 31 mmol/L [facility] [employer] Creatinine [Mass/Vol] 0.85 mg/dL 0.7 - 1.2 mg/dL [facility] GFR >60 60 - PI NF mL/min [facility] [employer] GFR Non- >60 60 - PINF mL/min [facility] [employer] Glucose [Mass/Vol] 75 mg/dL 70 - 99 mg/dL [facility] [employer] Interpretation and review of laboratory results Abnormal [facility] [employer] Potassium [Moles/Vol] 4.0 mmol/L 3.7 - 5.3 mmol/L [facility] [employer] Sodium [Moles/Vol] 141 mmol/L 135 - 144 mmol/L [facility] [employer] Urea nitrogen (BldV) [Mass/Vol] 17 mg/dL 8 - 23 mg/dL [facility] [employer] Urea nitrogen/Creatinine (Bld) [Mass ratio] 20 9 - 20 [facility] [employer] [facility] [employer] CBC with Auto Differentialon 10-13-2021 Absolute Eos # 0.22 [place] [facility] [employer] Absolute Immature Granulocyte 0.03 [facility] [employer] Absolute Lymph # 2.19 [facility] Absolute Emery # 0.83 [facility] Basophils (Bld) [#/Vol] 0.04 10*3/uL [facility] Basophils/100 WBC (Bld) 1 % 0 - 2 % [facility] Eosinophils/100 WBC (Bld) 3 % 1 - 4 % [facility] Hematocrit (Bld) [Volume fraction] 39.2 % Low 40.7 - 50.3 % [facility] Hemoglobin (Bld) [Mass/Vol] 12.9 g/dL Low 13 - 17 g/dL [facility] Immature granulocytes/100 WBC (Bld) 0 % 0 [facility] Interpretation and review of laboratory results Abnormal [facility] Lymphocytes/100 WBC (Bld) 32 % 24 - 43 % [facility] MCH (RBC) [Entitic mass] 30.6 pg 25.2 - 33.5 pg [facility] MCHC (RBC) [Mass/Vol] 32.9 g/dL 28.4 - 34.8 g/dL [facility] MCV (RBC) [Entitic vol] 92.9 fL 82.6 - 102.9 fL [facility] Monocytes/100 WBC (Bld) 12 % 3 - 12 % [facility] NRBC Automated 0.0 0.0 per 100 WBC [facility] Platelet distribution width (Bld) [Ratio] 13.5 % 11.8 - 14.4 % [facility] Platelet mean volume (Bld) [Entitic vol] 10.1 fL 8.1 - 13.5 fL [facility] Platelets (Bld) [#/Vol] 269 10*3/uL [facility] RBC (Bld) [#/Vol] 4.22 10*6/uL 4.21 - 5.7 7 m/uL [facility] Segmented neutrophils/100 WBC (Bld) 52 % 36 - 65 % [facility] Segs Absolute 3.65 [facility] WBC (Bld) [#/Vol] 7.0 10*3/uL [facility] EKG 12 LeadOrdered By: Wendy perdue on 10-13-2021 Atrial Rate 55 BPM [employer] Work Phone: P Winside 23 degrees [employer] Work Phone: P-R Interval 192 ms [employer] Work Phone: Q-T Interval 438 ms [employer] Work Phone: QRS Duration 88 ms [employer] Work Phone: QTc Calculation (Bazett) 419 ms [employer] Work Phone: R Winside 19 degrees [employer] Work Phone: T Winside 31 degrees [employer] Work Phone: Ventricular Rate 55 BPM [employer] Work Phone: [employer] Work Phone: EKG 12 Leadon 10-13-2021 Sinus bradycardia Otherwise normal ECG When compared with ECG of 21-NOV-2012 16:13, No significant change was found Confirmed by Wendy Groves MD ([id number]) on 10/13/2021 8:04:59 AM [facility] Wendy Groves MD - 10/13/2021 Sinus bradycardia Otherwise normal ECG When compared with ECG of 21-NOV-2012 16:13, No significant change was found Confirmed by Wendy Groves MD ([id number]) on 10/13/2021 8:04:59 AM [employer] Work Phone: Laboratory - Chemistry and C hemistry - challengeon 10-13-2021 GFR/1.73 sq M.predicted MDRD (S/P/Bld) [Vol rate/Area] [employer] Comment on above: Average GFR for 60-6 9 years old: 85 mL/min/1.73sq m Chronic Kidney Disease: <60 mL/min/1.73sq m Kidney failure: <15 mL/min/1.73sq m eGFR calculated using average adult body mass. Additional eGFR calculator available at: http://www.globalrph.com/multiple_crcl_2012.htm Stage 1: Some kidney damage normal GFR Stage 2: Mild kidney damage GFR 60-89 Stage 3: Moderate kidney damage GFR 30-59 Stage 4: Severe kidney damage GFR 15-29 Stage 5: Severe kidney damage GFR <15 ESRD - chronic treatment by dialysis or transplant No Panel InformationOrdered By: Aylin Garcia on 11-25-2020 Possible acute nondisplaced fracture of the distal calcaneus laterally. Correlate clinically for focal point tenderness in this location. [employer] Phone: EXAMINATION: THREE XRAY VIEWS OF THE LEFT FOOT; THREE XRAY VIEWS OF THE LEFT ANKLE 11/25/2020 6:35 pm COMPARISON: None. HISTORY: ORDERING SYSTEM PROVIDED HISTORY: injury TECHNOLOGIST PROVIDED HISTORY: injury FINDINGS: Frontal, lateral, and oblique view radiographs of the left foot were obtained, along with frontal, lateral, and mortise view radiographs of the left ankle. Bone mineralization is normal. There is a questionable acute nondisplaced fracture of the distal aspect of the calcaneus along the lateral aspect. No additional acute or healing fracture or destructive osseous abnormality. A small well corticated ossific fragment distal to the lateral malleolus is likely sequela of remote trauma. Joint relationships are maintained. The ankle mortise is symmetric. No significant degenerative findings. No calcaneal spurring. No appreciable soft tissue abnormality. [employer] Phone: Db, [facility] Incoming Radiant Results From [employer] - 11/25/2020 7:56 PM EDT EXAMINATION: THREE XRAY VIEWS OF THE LEFT FOOT; THREE XRAY VIEWS OF THE LEFT ANKLE 11/25/2020 6:35 pm COMPARISON: None. HISTORY: ORDERING SYSTEM PROVIDED HISTORY: injury TECHNOLOGIST PROVIDED HISTORY: injury FINDINGS: Frontal, lateral, and oblique view radiographs of the left foot were obtained, along with frontal, lateral, and mortise view radiographs of the left ankle. Bone mineralization is normal. There is a questionable acute nondisplaced fracture of the distal aspect of the calcaneus along the lateral aspect. No additional acute or healing fracture or destructive osseous abnormality. A small well corticated ossific fragment distal to the lateral malleolus is likely sequela of remote trauma. Joint relationships are maintained. The ankle mortise is symmetric. No significant degenerative findings. No calcaneal spurring. No appreciable soft tissue abnormality. IMPRESSION: Possible acute nondisplaced fracture of the distal calcaneus laterally. Correlate clinically for focal point tenderness in this location. [employer] Work Phone: [employer] Work Phone: Vital Signs Date Time Vital Sign Value Performing Clinician Moisesi mi 08-29-2023 21:45-0400 Diastolic blood pressure 72 mm[Hg] Keaton Krishnamurthy MD Work Phone: [employer] 08-29-2023 21:45-0400 Heart rate 60 /min Keaton Krishnamurthy MD Work Phone: [facility] [employer] 08-29-2023 21:45-0400 SaO2% (BldA) [Mass fraction] 99 % Keaton Krishnamurthy MD Work Phone: [facility] [employer] 08-29-2023 21:45-0400 Systolic blood pressure 119 mm[Hg] Keaton Krishnamurthy MD Work Phone: [facility] [employer] 08-29-2023 19:53-0400 Body temperature 97.5 [degF] Keaton Krishnamurthy MD Work Phone: [facility] [employer] 08-29-2023 19:52-0400 Respiratory rate 16 /min Keaton Krishnamurthy MD Work Phone: [facility] [employer] 11-25-2020 19:19-0400 Diastolic blood pressure 79 mm[Hg] Aylin Garcia DO Work Phone: [employer] Work Phone: 11-25-2020 19:19-0400 Systolic blood pressure 123 mm[Hg] Aylin Garcia DO Work Phone: [employer] Work Phone: 11-25-2020 19:17-0400 Heart rate 75 /min Aylin Garcia DO Work Phone: [employer] Work Phone: 11-25-2020 19:17-0400 Respiratory rate 12 /min Aylin Garcia [employer] Work Phone: [employer] Phone: 11-25-2020 19:17-0400 SaO2% (BldA) [Mass fraction] 100 % Aylin Garcia [employer] Work Phone: [employer] Phone: Encounters Encounter Date Encounter Type Care Provider Facility Start: 11-16-2023 End: 11-16-2023 ambulatory ELIEHSAN FISCHERETT Not Available Start: 11-11-2023 End: 11-11-2023 ambulatory TRESSA L RINE Not Available Start: 10-18-[address] [facility] Start: 10-17-2023 End: 10-19-2023 Subsequent hospital visit by physician [employer] [facility] Non-Invasive Cardiology Comment on above: Syncope and collapse Start: 10-17-2023 ambulatory TRESSA L RINE [facility] in Hospital Start: 08-30-2023 End: 08-30-2023 ambulatory TRESSA L RINE Not Available Start: 08-29-2023 End: 08-29-2023 Emergency department patient visit Keaton Krishnamurthy MD Work Phone: [facility] ED Comment on above: Syncope and collapse (Primary Dx) Start: 05-11-2023 Telephone encounter Tressa herbert [employer] Work Phone: [facility] Comment on above: refill levothyroxine Start: 06-09-2022 End: 06-10-2022 ambulatory Rigoberto Patel MD Facility:[facility] Start: 02-24-2022 End: 02-25-2022 ambulatory Rigoberto Patel MD Facility:[facility] Start: 12-17-2021 End: 12-18-2021 ambulatory Rigoberto Patel MD Facility:[facility] Start: 12-03-2021 End: 12-04-2021 ambulatory Rigoberto Patel MD Facility:[facility] Start: 12-03-2021 End: 12-04-2021 ambulatory Rigoberto Patel MD Facility:[facility] [place] Start: 11-25-2021 End: 11-27-2021 Subsequent hospital visit by physician Shelly King [facility] Mammography Comment on above: Closed dislocation, multiple and ill-defined sites Start: 10-13-2021 End: 10-13-2021 Subsequent hospital visit by physician Tressa Johnston Work Phone: [facility] Start: 11-25-2020 End: 11-25-2020 Emergency department patient visit Aylin Garcia DO Work Phone: [facility] ED Comment on above: Closed nondisplaced fracture of left calcaneus, unspecified portion of calcaneus, initial encounter (Primary Dx) Procedures Date Procedure Procedure Detail Performing Clinician Start: 08-29-2023 Radiologic exam ches t single view Keaton Krishnamurthy MD Work Phone: Start: 08-29-2023 Basic metabolic pane l calcium total Keaton Krishnamurthy MD Work Phone: Start: 11-25-2021 Dxa bone density jesus dy 1/> sites axial skel Tressa L Rine Work Phone: Start: 10-13-2021 Ecg routine ecg w/le ast 12 lds w/i&r Sumanth Rangel MD Work Phone: Start: 10-13-2021 Basic metabolic pane l calcium total Tressa L Rine Work Phone: Start: 11-25-2020 End: 11-25-2020 Radex ankle complete minimum 3 views Aylin Garcia DO Work Phone: Start: 12-03-2013 Colonoscopy Tressa Johnston Work Phone: Plan of Treatment Date Care Activity Detail Author Start: 04-09-2025 Lipid panel Lipids [facility] Start: 12-04-2023 Screening for malign ant neoplasm of colon [facility] Start: 10-27-2023 Influenza vaccination [facility] Start: 09-25-2023 Influenza vaccination Influenza Vacc ine (#1) [facility] Comment on above: Postponed from 11/26 (Patient Refused) Start: 11-26-2021 Influenza vaccination Flu vaccine (# 1) [facility] [employer] Start: 11-26-2020 Influenza vaccination [facility] [employer] Phone: Start: 2019 Respiratory Syncytia l Virus (RSV) or age 60 yrs+ (1 - 1-dose 60+ series) Respiratory Syncytial Virus (RSV) or age 60 yrs+ (1 - 1-dose 60+ series) [facility] [employer] Start: 02-08-2016 Prostate specific antigen measurement Prostate Specific Antigen (PSA) Screening or Monitoring [facility] [employer] Start: 2009 Shingles Vaccine (1 of 2) Shingles Vaccine (1 of 2) [facility] [employer] Start: 2004 Screening for malign ant neoplasm of colon [facility] Start: 1999 Lipid panel [facility] [employer] Start: 1978 DTaP/Tdap/Td vaccine (1 - Tdap) DTaP/Tdap/Td vaccine (1 - Tdap) [facility] [employer] Start: 1977 Hepatitis C screening Hepatitis C sc reen [facility] [employer] Start: 1974 HIV screening HIV screen [facility] [employer] Start: 1971 COVID-19 Vaccine (1) COVID-19 Vaccin e (1) [employer] Phone: Start: 1971 Depression Screen Depression Screen [facility] Start: 1959 COVID-19 Vaccine (#1) COVID-19 Vacci ne (#1) [facility] Start: 1960 Hepatitis C screening Hepatitis [facility] [employer] Phone: Start: 1960 Screening for malign ant neoplasm of colon [facility] End: 10-17-2023 Cardiac holter monitor (1 day-2 day) [facility] [employer] Phone: Comment on above: 1 Occurrences starti ng 10/17/2023 until 10/17/2023 End: 11-25-2020 Splint application Splint application Procedures STAT One Time for 1 Occurrences starting 11/25/2020 until 11/25/2020 [employer] Work Phone: Comment on above: One Time for 1 Occur rences starting 11/25/2020 until 11/25/2020 STRESS TEST REPORT STRESS TEST R EPORT [facility] Ordered: 10/19/2023 SANDRITA RAZO [facility] Comment on above: Ordered: 10/19/2023 Payers Date Payer Category Payer Unknown [id number] 2021 Unknown 2021 Unknown [employer] [address] [id number] 2021-Present [address] [place] [address] [id number] .[id number] 2020 [facility] [id number] 2020-Present [phone] [address] [place] [address] [id number] .[id number] 2020 [facility] [id number] 2020-Present [phone] [address] [place] [address] [id number] .[id number] 1959 Unknown [id number] 2.16.840.1.829511.3.579.2.196 1959 Unknown [id number] 2.16.840.1.151918.3.579.2.196 1959 Unknown [id number] 2.16.840.1.056343.3.579.2.196 1959 Unknown [id number] 2.16.840.1.974026.3.579.2.196 1959 Unknown [id number] 2.16.840.1.065558.3.579.2.196 1959 Unknown [id number] 2.16.840.1.240901.3.579.2.196 1959 Unknown [id number] 2.16.840.1.021386.3.579.2.173 1959 Unknown [id number] 2.16.840.1.667835.3.579.2.173 1959 Unknown [id number] 2.16.840.1.811702.3.579.2.173 1959 Unknown [id number] 2.16.840.1.813873.3.579.2.173 1959 Unknown [id number] 2.16.840.1.580351.3.579.2.173 1959 Unknown [id number] 2.16.840.1.956871.3.579.2.173 1959 Unknown [id number] 2.16.840.1.802826.3.579.2.173 1959 Unknown [id number] 2.16.840.1.049936.3.579.2.125 9 1959 Unknown [id number] 2.16.840.1.919895.3.579.2.125 9 1959 Unknown [id number] 2.16.840.1.229764.3.579.2.125 9 Self-pay Social History Date Type Detail Facility Start: 12-03-2013 End: 10-27-2022 Tobacco smoking status [facility] Never smoker [employer] Phone: Start: 1960 Sex Assigned At Not on file [employer] Phone: Exposure to SARS-CoV -2 (event) Not sure [employer] Start: 10-27-2022 Tobacco use and exposure Former smokeless tobacco user [facility] History of tobacco use Chews Tobacco [facility] Start: 01-20-2023 Alcohol intake Current drinker of alcohol (finding) [facility] Start: 01-20-2023 End: 05-25-2023 [facility] Start: 01-20-2023 End: 05-25-2023 Alcohol Use Disorder Identification Test - Consumption [AUDIT-C] [facility] How often to you hav e a drink containing alcohol? Monthly or less [facility] How many standard dr inks containing alcohol do you have on a typical day? 1 or 2 [facility] How often do you hav e 6 or more drinks on 1 occasion? Never [facility] Start: 12-18-2022 Alcohol Comment 1-2 drinks less than monthly in the past year [facility] Hospital Discharge instructions 08-29-2023 Discharge InstructionsAttachments Note Date & Type Note Facility 08-29-2023 Hospital Discharg e instructions Keaton Krishnamurthy MD - 08/29/2023 9:55 PM EDT Call today or tomorrow to follow up with Tressa Johnston APRN - NP in 5 days. Get up slowly; dangle your feet over the bed before standing up, do not stand up quickly. Return to the Emergency Department for blacking out, any headache, slurring of speech, loss of strength, excessive nausea or vomiting, any other care or concern. The following attachments cannot be sent through Care Everywhere.Fainting (Armenian)documented in this encounter [facility] Telephone encounter Note 05-11-2023 Telephone Encounter - Tressa Johnston NP - 05/11/2023 3:08 PM EST Note Date & Type Note Facility 05-11-2023 Telephone encount er Note Sent as requested [facility] Note 05-11-2023 Telephone Encounter - Tressa Johnston NP - 05/11/2023 3:08 PM ESTTelephone Encounter - Bridgette Ta MA - 05/11/2023 1:17 PM EST Note Date & Type Note Facility 05-11-2023 Miscellaneous Notes Formattin g of this note might be different from the original. Sent as requested He needs his levothyroxine refilled to [facility] documented in this encounter [facility] Telephone encounter Note 05-11-2023 Telephone Encounter - Bridgette Ta MA - 05/11/2023 1:17 PM EST Note Date & Type Note Facility 05-11-2023 Telephone encount er Note He needs his levothyroxine refilled to [facility] Hospital Discharge instructions 11-25-2020 Instructions Note Date & Type Note Facility 11-25-2020 Hospital Discharg e instructions Aylin Garcia DO - 11/25/2020 Continue using the splint and crutches until you go see Dr. Rangel tomorrow. Continue Motrin and Tylenol for additional pain. Return to the emergency department for new, worsening or worrisome symptoms which include but are not limited to increased pain, weakness and numbness. documented in this encounter [employer] Phone: Evaluation note Note Date & Type Note Facility Evaluation note Diagnosis Closed nondisplaced fracture of left calcaneus, unspecified portion of calcaneus, initial encounter- Primary documented in this encounter [employer] Phone: Evaluation note Note Date & Type Note Facility Evaluation note Diagnosis Closed dislocation, multiple and ill-defined sites documented in this encounter [facility] [employer] Phone: Evaluation note Note Date & Type Note Facility Evaluation note Diagnosis Acquired hypothyroidism (CMS/HCC) Unspecified hypothyroidism documented in this encounter [facility] Healthcare Evaluation note Note Date & Type Note Facility Evaluation note Diagnosis Syncope and collapse- Primary documented in this encounter [facility] [employer] Evaluation note Note Date & Type Note Facility Evaluation note Diagnosis Syncope and collapse documented in this encounter [facility] Advance Directives No Advanced Directives Records FoundDocuments on File Type Date 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 ACP-Advance Directive ACP-Power of Procedures Tech Reason for Referral Specialty Diagnoses / Procedures Referred By Yamel menezes Referred To Contact Radiology Diagnoses Closed dislocation, multiple and ill-defined sites Procedures DEXA BONE DENSITY AXIAL SKELETON Tressa Johnston [address] [place] [phone] Referral ID Status Reason Start Date Expiration Date Visits Re quested Visits Authorized [id number] Closed 11/20/2021 11/20/2022 1 1 Specialty Diagnoses / Procedures Referred By Yamel t Referred To Contact Diagnoses Syncope and collapse Procedures Cardiac holter monitor (1 day-2 day) [facility] CV TELEMETRY W/I&REPORT 30 DAYS [facility] PT ACTIVATED ECG REC DWNLD 30 DAYS [place] [facility]LE CV TELEMETRY W/TECHNICAL SUPPORT Tressa Johnston, EXPLOSION WELDER - MARRIAGE AND FAMILY COUNSELOR [address] [place] [phone] Referral ID Status Reason Start Date Expiration Date Visits Re quested Visits Authorized [id number] Closed 09/02/2023 09/01/2024 1 1 Summary Purpose Family History No Family History Records FoundNo Family History Records FoundNo Family History Records Found Additional Source Comments Reason for Visit (unrecogniz ed section and content) Reason Comments Ankle Pain left, rolled while s tepping out of van. Work Related Injury Specialty Diagnoses / Procedures Referred By Yamel menezes Referred To Contact Radiology Diagnoses Closed dislocation, multiple and ill-defined sites Procedures DEXA BONE DENSITY AXIAL SKELETON Tressa Johnston L [address] [place] [phone] Referral ID Status Reason Start Date Expiration Date Visits Re quested Visits Authorized [id number] Closed 11/20/2021 11/20/2022 1 1 Reason Onset Date Comments refill levothyroxine 05/11/2023 Reason Comments Loss of Consciousness Witnessed syncopal episode while outside. Specialty Diagnoses / Procedures Referred By Yamel t Referred To Contact Diagnoses Syncope and collapse Procedures Cardiac holter monitor (1 day-2 day) [place] [facility] MOBILE CV TELEMETRY W/I&REPORT 30 DAYS [place] [facility] PT ACTIVATED ECG REC DWNLD 30 DAYS [place] [facility] MOBILE CV TELEMETRY W/TECHNICAL SUPPORT Hernesto Johnstonri MounikaYELITZA - MARRIAGE AND FAMILY COUNSELOR [address] [place] [address] Referral ID Status Reason Start Date Expiration Date Visits Re quested Visits Authorized [id number] Closed 09/02/2023 09/01/2024 1 1 Care Teams (unrecognized sec tion and content) Weatherization Specialist Relationship Specialty Start Date End Date Tressa Johnston [address] [place], [place] [phone] PCP - General 11/25/20 Weatherization Specialist Relationship Specialty Start Date End Date Tressa Johnston [address] [place], [place] [phone] PCP - General 11/25/20 Weatherization Specialist Relationship Specialty Start Date End Date Tressa Johnston [address] [place] [address] PCP - General 11/25/20 Weatherization Specialist Relationship Specialty Start Date End Date Evelio Monsivais DO [address] [place] [address] PCP - General Family Medicine 10/21/22 Evelio Monsivais DO [address] [place] [address] PCP - [employer] 03/28/23 Tressa Johnston MARRIAGE AND FAMILY COUNSELOR [address] [place] [address] Nurse Practitioner Family Medicine 10/21/22 Weatherization Specialist Relationship Specialty Start Date End Date Tressa Johnston APRN - MARRIAGE AND FAMILY COUNSELOR [address] [place] [address] PCP - General 11/25/20 Weatherization Specialist Relationship Specialty Start Date End Date Tressa Johnston, EXPLOSION WELDER - MARRIAGE AND FAMILY COUNSELOR [address] [place] [address] PCP - General 11/25/20 (unrecognized sect ion and content) No Status Records FoundNo Status Records FoundNo Status Records Found INFORMATION SOURCE (unrecogn ized section and content) DATE CREATED AUTHOR 06/12/2022 [facility] DATE CREATED AUTHOR AUTHOR'S ORGANIZ ATION 10/19/2023 [facility] DATE CREATED AUTHOR AUTHOR'S ORGANIZ ATION 11/18/2023 [facility] dical Specialists EPIC Scheduled Active and Recently Administ ered Medications (unrecognized section and content) Medication Order 08/27/2023 08/28/2023 08/29/2023 sodium chloride 0.9 % bolus 1,000 mL (COMPLETED) 1,000 mL, IntraVENous, at 1,935.5 mL/hr, Administer over 31 Minutes, ONCE, On 08/29/23 at 2000, For 1 dose 2001 (New Bag - Prov ider: Gilda Freitas RN)2049 (Stopped - Provider: Gilda Freitas, MARLEN) FOR RECORDS PERTAINING TO PATIENTS WHO ARE OR HAVE BEEN ENROLLED IN A CHEMICAL DEPENDENCY/SUBSTANCEABUSE PROGRAM, SOME INFORMATION MAY BE OMITTED. This clinical summary was aggregated from multiple sources. Caution should be exercised in using it in the provision of clinical care. This summary normalizes information from multiple sources, and as a consequence, information in this document may materially change the coding, format and clinical context of patient data. In addition, data may be omitted in some cases. CLINICAL DECISIONS SHOULD BE BASED ON THE PRIMARY CLINICAL RECORDS. [employer] provides no warranty or guarantee of the accuracy or completeness of information in this document.
[2024-01-03 06:55] VITALS: BP 127/85; PULSE 58; TEMP 35.5; O2SAT 98; BMI 26.5
[2024-01-03] MEDS: 0.9 % SODIUM CHLORIDE 500 ML 50 ML IV (07:18)
[2024-01-03 08:35] VITALS: BP 111/73; PULSE 57; TEMP 36.6; O2SAT 97
[2024-01-03 08:50] VITALS: BP 111/74; PULSE 49; O2SAT 98
[2024-01-03 09:05] VITALS: BP 109/73; PULSE 48; O2SAT 97
--- NOTE | 2024-01-03 15:38 | W.PM.PROCNOT ---
Date of procedure: 01/03/24 Pre-op diagnosis: screening c-scope Post-op diagnosis: other (sigmoid diverticulosis ) Procedure: Previous colonoscopy: 2013 procedure: screening colonoscopy The patient was given IV conscious sedation.? The patient's SPO2 remained above 90% throughout the procedure. The colonoscope was inserted per rectum and advanced under direct vision to the cecum without difficulty.? The prep was good.? Findings: Terminal ileum os: normal Cecum/Ascending colon: normal Transverse colon: normal Descending/Sigmoid colon: normal aside for sigmoid diverticulosis Rectum/Anus: examined in normal and retroflexed positions and was normal Withdrawal Time was (minutes): 8 The colon was decompressed and the scope was removed.? The patient tolerated the procedure well. Recommendations/Plan: 1.? Lifestyle and dietary modifications as discussed 2.? F/U in 10 years 3.? Discussed with the family Anesthesia: MAC Surgeon: Mike Dixon Estimated blood loss (mL): 0 Pathology: none sent Condition: stable Disposition: PACU
== END 2024-01-03 09:05 | disposition home or self-care (01) ==
PROVIDERS: Visit Provider Surgery
PROC: (CPT 00812; principal; 2024-01-03 07:55)
DX: Z12.11 Encounter for screening for malignant neoplasm of colon (principal); K57.30 Diverticulosis of large intestine without perforation or abscess without bleeding; E03.9 Hypothyroidism, unspecified; M06.9 Rheumatoid arthritis, unspecified
CPT/HCPCS: 00812; 45378; J2371; J2704